=== PATIENT | female | born 1950 | race American Indian/Alaskan Native ===

== ENCOUNTER 2016-07-06 10:36 | Inpatient (IN) | payer MEDICARE ==
[2016-07-06 12:04] LABS: Basophils % (Auto) 0.4 % (0.0-1.8); Eosinophils % (Auto) 0.9 % (0.0-4.3); Hematocrit 41.8 % (30.3-42.9); Hemoglobin 14.4 gm/dl (10.1-14.3); Mean Corpuscular HGB Conc 34 % (30-34); Mean Corpuscular Hemoglobin 31 pg (28-32); Mean Corpuscular Volume 89 fl (79-97); Platelet Count 214 K/mm3 (140-440); Red Blood Count 4.71 M/mm3 (3.65-5.03); Red Cell Distribution Width 14.1 % (13.2-15.2); White Blood Count 7.1 K/mm3 (4.5-11.0)
[2016-07-06 12:20] LABS: Anion Gap 19 mmol/L; BUN/Creatinine Ratio 23.33; Blood Urea Nitrogen 14 mg/dL (7-17); Calcium 9.3 mg/dL (8.4-10.2); Carbon Dioxide 26 mmol/L (22-30); Chloride 93.2 mmol/L (98-107); Glucose 194 mg/dL (65-100); Sodium 134 mmol/L (137-145)
[2016-07-06] MEDS ORDERED: MORPHINE IV ONE (22:00)
[2016-07-06] MEDS ORDERED: ZOFRAN IV ONE (22:00)
[2016-07-06] MEDS ORDERED: BABY ASPIRIN PO ONE (22:01)
--- NOTE | 2016-07-06 22:01 | Emergency Department Report ---
HPI - General Chief Complaint: Chest Pain Time Seen by Provider: 07/06/16 20:08 - HPI HPI: The patient is a 65-year-old female who presents for evaluation of chest pain. The patient reports chest pain since 8 AM this morning, constant since onset, though sided in location, radiating into the neck, 6/10 in severity, and pressure-like in quality. The patient denies fever, neck pain, parasthesias, dyspnea, cough, hemoptysis, palpitations, dizziness, syncope, unilateral leg swelling, calf muscle pain. Patient also denies cocaine or other stimulant use , history of DVT or PE, recent immobilization, or history of recent cancer. ED Past Medical Hx - Past Medical History Hx Hypertension: Yes Hx Heart Attack/AMI: Yes Hx Congestive Heart Failure: Yes Hx Diabetes: Yes Additional medical history: high cholest. hernia - Social History Smoking Status: Never Smoker Substance Use Type: None - Medications Home Medications: Home Medications Medication Instructions Recorded Confirmed Last Taken Type Aspirin EC [Aspirin Enteric Coated 325 mg PO QDAY 07/06/16 07/06/16 Unknown History TAB] Losartan [Cozaar] 100 mg PO QDAY 07/06/16 07/06/16 Unknown History Metoprolol [Lopressor TAB] 25 mg PO QDAY 07/06/16 07/06/16 Unknown History PARoxetine [Paxil] 10 mg PO QAM 07/06/16 07/06/16 Unknown History Triamterene/Hydrochlorothiazid 1 tab PO QDAY 07/06/16 07/06/16 Unknown History [Triamterene-Hctz 50-25 mg Cap] amLODIPine [Norvasc] 10 mg PO QDAY 07/06/16 07/06/16 Unknown History glipiZIDE [glipiZIDE ER] 5 mg PO QDAY 07/06/16 07/06/16 Unknown History ED Review of Systems ROS: Stated complaint: CHEST PNS Other details as noted in HPI Constitutional: denies: fever ENT: denies: throat or neck pain Respiratory: denies: cough, shortness of breath Cardiovascular: reports chest pain Endocrine: denies unexplained weight loss or gain Gastrointestinal: denies: abdominal pain, nausea Genitourinary: denies: dysuria Musculoskeletal: denies: leg swelling Skin: denies: rash Neurological: denies: headache Hematological/Lymphatic: denies: easy bleeding or easy bruising Psych: denies sadness or hopelessness Physical Exam - Physical Exam Vital Signs: Vital Signs 07/06/16 07/06/16 07/06/16 11:24 19:31 21:09 Temperature 98.3 F 98.1 F Pulse Rate 80 71 87 Respiratory 16 20 Rate Blood Pressure 156/102 Blood Pressure 140/84 [Right] O2 Sat by Pulse 99 96 Oximetry Physical Exam: General: well-nourished, well-developed, no acute distress Head: Normocephalic, atraumatic Eyes: normal sclera ENT: Mucous membranes are pink and moist Neck: trachea midline, neck supple, No neck stiffness, no cervical adenopathy Respiratory: Breath sounds equal bilaterally, no wheezing, rales, or rhonchi Cardio: S1 and S2 present, no murmurs, rubs, gallops, capillary refill is brisk Abdomen: Normoactive bowel sounds, soft abdomen, no rigidity, no guarding or rebound tenderness Chest WALL/Back: No tenderness to palpation of the chest wall, no CVA tenderness with percussion Musc: No pitting edema Skin: No rash Neuro: no facial drooping, normal speech Psych: Normal affect ED Course Vital Signs 07/06/16 07/06/16 07/06/16 11:24 19:31 21:09 Temperature 98.3 F 98.1 F Pulse Rate 80 71 87 Respiratory 16 20 Rate Blood Pressure 156/102 Blood Pressure 140/84 [Right] O2 Sat by Pulse 99 96 Oximetry ED Medical Decision Making - Lab Data Result diagrams: 07/06/16 11:40 07/06/16 11:40 - Medical Decision Making The patient was seen and examined by myself. The patient is placed on a lath tier and continuous pulse ox. On initial evaluation, the patient was found to be in no distress. EKG was negative for findings suggestive of acute cardiac infarct. The patient is given an aspirin tablet and IV morphine for her pain.. Labs and imaging are obtained. Chest x-ray is negative for pneumothorax, focal consolidation, pulmonary vascular congestion, pleural effusion, or other obvious acute cardiopulmonary disease process. Lab results were non-revealing including negative troponin, WBC, hemoglobin, hematocrit, electrolytes, renal function. The patient was reevaluated and reported that their symptoms were improved. As the patient has chest pain and risk factors for development of acute coronary event, the patient will be admitted for close cardiopulmonary monitoring, serial troponins, and evaluation by cardiology. The physician on-call was contacted. They presented to the emergency department and evaluated the patient. They agreed to admit the patient. The ED admit order was placed. The patient was admitted in guarded condition. Critical care attestation.: If time is entered above; I have spent that time in minutes in the direct care of this critically ill patient, excluding procedure time. ED Disposition Clinical Impression: Acute chest pain Disposition: OP ADMITTED IP TO THIS HOSP Is pt being admited?: Yes Does the pt Need Aspirin: Yes Condition: Stable Time of Disposition: 22:01
[2016-07-06] MEDS ORDERED: LOVENOX SUB-Q ONE (23:44)
[2016-07-06] MEDS: LOVENOX SUB-Q SCH (23:49)
--- NOTE | 2016-07-07 00:01 | History and Physical Report ---
History of Present Illness Date of examination: 07/06/16 Date of admission: 07/06/16 22:42 Chief complaint: Chest pain History of present illness: Patient is 65-year-old woman with a history of hypertension, type 2 diabetes mellitus, dyslipidemia, CHF, depression, anxiety and tobacco dependency with dipping snuff who presents with constant moderate intense pressure-like nonradiating left-sided chest pain without aggravating or relieving factor to started yesterday associated with left neck pain that started day before without aggravating or relieving factors. She denies any severe headaches, nausea vomiting or abdominal pain. She has chronic left leg neuropathy from diabetes also. She goes to [facility] for PCP. Past medical history: As HPI Past surgical history: 1 and D&C Social history: Chews tobacco, alcohol or illegal drugs, full code Family history: Mother had a heart attack age 59 ROS: as HPI and all other ROS reviewed and negative. Medications and Allergies Allergies Allergy/AdvReac Type Severity Reaction Status Date / Time lisinopril AdvReac Shortness Verified 07/06/16 11:33 of Breath Home Medications Medication Instructions Recorded Confirmed Last Taken Type PARoxetine [Paxil] 10 mg PO QAM 07/06/16 07/06/16 Unknown History RX: Aspirin EC [Aspirin Enteric 325 mg PO QDAY 07/06/16 07/06/16 Unknown History Coated TAB] RX: Losartan [Cozaar] 100 mg PO QDAY 07/06/16 07/06/16 Unknown History RX: Metoprolol [Lopressor TAB] 25 mg PO QDAY 07/06/16 07/06/16 Unknown History RX: Triamterene/Hydrochlorothiazid 1 tab PO QDAY 07/06/16 07/06/16 Unknown History [Triamterene-Hctz 50-25 mg Cap] RX: amLODIPine [Norvasc] 10 mg PO QDAY 07/06/16 07/06/16 Unknown History glipiZIDE [glipiZIDE ER] 5 mg PO QDAY 07/06/16 07/06/16 Unknown History Active Meds: Active Medications Enoxaparin Sodium (Lovenox) 40 mg SUB-Q QDAY@2200 JOHN Last Admin: 07/06/16 23:49 Dose: 40 mg Exam - Physical Exam Narrative exam: GEN: WDWN, NAD, AWAKE, ALERT, ORIENTATED x 3 HEENT: NCAT, PERRL, EOMI, OP CLEAR NECK: SUPPLE, NO THYROMEGALY, NO JVD, NO LAD CVS: RRR, NORMAL S1S2 LUNGS/CHEST: CTA B, NORMAL CHEST EXPANSION B, GOOD AIR ENTRY B ABD: SOFT NTND, GBS, NO REBOUND OR GUARDING EXT/SKIN: NO SIGNIFICANT EDEMA, multiple healed scars throughout upper back, arms, legs MSK: FROM X 4 EXTREMITIES NEURO: CN 2-12 GROSSLY INTACT, NO new FOCAL DEFICITS PSY: CALM - Constitutional Vitals: Temp Pulse Resp BP Pulse Ox 98.1 F 84 15 144/85 93 07/06/16 23:50 07/06/16 23:50 07/06/16 23:50 07/06/16 23:50 07/06/16 23:50 Results - Labs CBC & Chem 7: 07/06/16 11:40 07/06/16 11:40 Assessment and Plan Patient is 65-year-old woman with a history of hypertension, type 2 diabetes mellitus, dyslipidemia, CHF, depression, anxiety and tobacco dependency with dipping snuff who presents with constant moderate intense pressure-like nonradiating left-sided chest pain without aggravating or relieving factor to started yesterday associated with left neck pain that started day before without aggravating or relieving factors. She denies any severe headaches, nausea vomiting or abdominal pain. She has chronic left leg neuropathy from diabetes also. She goes to [facility] for PCP. -CP, r/o: stress test -DM 2 uncontrolled with hyperglycemia: ssi -Tobacco dependancy: certified addiction counselor on stopping -HTN: low salt diet -DVT prophylaxis: scd and sq lovenox -Morbid obese, bmi 45.3: eating [employer] cheeseburger, counseling done. full code
[2016-07-07] MEDS ORDERED: D50W (25GM) IV PRN (00:10)
[2016-07-07] MEDS: NOVOLOG SUB-Q SCH ×3 (07:02→17:33)
--- NOTE | 2016-07-07 07:16 | Admit Criteria Form ---
Admission Criteria Documentation: CHEST PAIN Clinical Indications for Admission to Inpatient Care (Place 'X' for any and all applicable criteria): Admission is indicated for chest pain and ANY ONE of the following(1)(2)(3)(4)(5 ): [ ]I. Angina with acute coronary syndrome (Also use Myocardial Infarction or Angina guideline) [ ]II. Hemodynamic instability [ ]III. Angina needing acute intervention as indicated by ALL of the following( 11)(12): [ ]a) Unstable angina is present as indicated by angina that is ANY ONE of the following: [ ]i) New onset [ ]ii) Nocturnal [ ]iii) Prolonged at rest [ ]iv) Progressive [ ]b) Angina warrants acute intervention as indicated by ANY ONE of the following: [ ]i) Recurrent angina (e.g, not responding as previously to treatment) [ ]ii) Angina at rest or with low-level activities despite initial medical therapy [ ]iii) New or presumably new ST-segment depression on ECG [ ]iv) Signs or symptoms of heart failure (eg, dyspnea, pulmonary edema) [ ]v) New or worsening mitral regurgitation [ ]vi) Hemodynamic instability [ ]vii) Dangerous arrhythmia (eg, sustained ventricular tachycardia) [ ]viii) History of percutaneous coronary intervention within 6 months [ ]ix) History of coronary artery bypass graft surgery [ ]x) DAIJA risk score of 2 or greater[A] [ ]xi) History of Diabetes(14) [ ]xii) High-risk cardiac ischemia findings on noninvasive testing (e.g, echocardiogram, treadmill testing, nuclear scan) [ ]xiii) Chronic renal insufficiency (ie, estimated GFR less than 60 mL/min/1.732m) [ ]xiv) Left ventricular ejection fraction less than 40% [ ]IV. Evidence of SD (eg, cardiac biomarkers positive, ST-segment elevation on ECG) also use Myocardial Infarction Criteria Form. [ ]V. Pulmonary edema [ ]. Respiratory distress [ ]VII. Chest pain indicative of serious diagnosis other than coronary artery disease (eg, aortic dissection) [ ]VIII. Contraindications and/or Inappropriate clinical situations for Observational Care in patients with Chest Pain, when ANY ONE of the following is required: [ ]a) Patient with risk factor for pulmonary embolism, acute coronary syndrome and myocardial infarction (18) [ ]b) Patient with Pulmonary embolism require an average LOS of 4.3 days, therefore emergency department observation management is inappropriate 18,23 [ ]c) Painful condition/s in the elderly, have the highest rate of recidivism after emergency department observation management (10.8%) 20,21,22 [ ]d) Elevated cardiac biomarker requires intensive and exhaustive care (19) [X ]IX. General contraindications and/or Inappropriate clinical situations for Observational Care in patients with Chest Pain, when ANY ONE of the following is required: [X ]a) Prediction of prolongation of LOS based on ANY ONE of the following may be considered as a contraindication for observational care 2, 3, 4, 5, 6, 7, 8, 9, 10, 11 [X ]i) Age > 65 yrs. [ ]ii) Patient arriving by ambulance [ ]iii) Patient with high acuity [ ]iv) Patient requiring vital sign monitoring [ ]v) Patient on IV medication [ ]b) Systolic blood pressures 180mmHg 3,12 [ ]c) Patient with altered mental status including delirium and other alteration of consciousness, (3) [ ]d) Patient whose discharge disposition will be to a shelter home or rehabilitation home should not be managed in Emergency Department Observation Unit. CMS rule requires 3 days hospital stay before such placement. 3,13 [ ]e) Patient with failure to thrive due to broad array of etiologies 3,16,17 [ ]f) Inability to ambulate 3,14 Extended stay beyond goal length of stay may be needed for (1)(28): [ ]a) Specific condition diagnosed after evaluation (eg, pulmonary embolism, aortic dissection) [ ]b) Unstable angina [ ]c) Continued suspicion of acute coronary syndrome with inability to complete needed cardiac evaluation (eg, patient clinically unable to undergo stress testing) [ ]d) Myocardial infarction (Contents from ANGINA and CHEST PAIN clinical indications for admission to inpatient care have been integrated in this form) The original [facility] content created by [employer] has been revised. The portions of the content which have been revised are identified through the use of italic text or in bold, and [facility] [employer] has neither reviewed nor approved the modified material. All other unmodified content is copyright [facility]. Please see references footnoted in the original [facility] [employer] edition 2016 Admission Criteria Met: Yes
--- NOTE | 2016-07-07 07:30 | XRay Report ---
AP CHEST: HISTORY: chest pain AP view of the chest demonstrates a normal mediastinal and cardiac contour with clear lungs and normal bony and soft tissue structures. IMPRESSION: Unremarkable AP chest.
[2016-07-07] MEDS: ECOTRIN PO SCH (12:01)
[2016-07-07] MEDS: PAXIL PO SCH (12:02)
[2016-07-07] MEDS: LOPRESSOR PO SCH (12:02)
--- NOTE | 2016-07-07 15:37 | Event Note ---
Date: 07/07/16 Nuclear stress test was cancelled per Dr. Rosales. The patient had a previous at [facility] on 05/08/2016. The report of that exam was placed in the chart for review. Recommend pt to follow up in our office with Dr. Johnson within 1-2 weeks of hospital discharge ([phone]). Deanne MODI NP / DR. JOHNSON
--- NOTE | 2016-07-07 19:28 | Progress Note ---
Assessment and Plan -Atypical chest pain likely secondary to assess for reflux disease Continue with oxygen nitroglycerin aspirin and morphine. Stress test was consult today because patient had had a stress test at [facility] on 05/08/2016. -Diabetes mellitus type 2 Sliding scale insulin with consistent carbohydrates diet -Hypertension Optimize blood pressure control -Morbid obesity Dietary for weight management DVT prophylaxis with Lovenox and GI with Pepcid Disposition: Optimize glycemic control with possible discharge in the morning Subjective Date of service: 07/07/16 Principal diagnosis: chest pain, diabetes mellitus. Interval history: Chest pain resolving. Objective - Constitutional Vitals: Vital Signs - 12hr 07/07/16 07/07/16 07/07/16 09:00 10:00 12:02 Temperature 98.7 F Pulse Rate 68 76 Pulse Rate [ 66 65 Right Radial] Respiratory 18 Rate Blood Pressure 124/63 Blood Pressure 110/72 [Left Arm] O2 Sat by Pulse 96 Oximetry 07/07/16 07/07/16 15:21 17:00 Temperature 97.7 F Pulse Rate 78 Pulse Rate [ 67 Right Radial] Respiratory 18 Rate Blood Pressure Blood Pressure 114/74 [Left Arm] O2 Sat by Pulse 97 Oximetry General appearance: Present: no acute distress, obese - EENT Eyes: PERRL, EOM intact ENT: hearing intact, clear oral mucosa - Neck Neck: supple, normal ROM - Respiratory Respiratory effort: normal Respiratory: bilateral: CTA - Cardiovascular Rhythm: regular Heart Sounds: Present: S1 & S2. Absent: gallop, rub Extremities: pulses intact, No edema, normal color, Full ROM - Gastrointestinal General gastrointestinal: Present: soft, non-tender, non-distended, normal bowel sounds - Genitourinary Female genitourinary: normal - Integumentary Integumentary: clear, warm, dry - Musculoskeletal Musculoskeletal: 1, strength equal bilaterally - Neurologic Neurologic: moves all extremities - Psychiatric Psychiatric: memory intact, appropriate mood/affect, intact judgment & insight - Labs CBC & Chem 7: 07/06/16 11:40 07/06/16 11:40 Labs: Abnormal lab results 07/07/16 07/07/16 07/07/16 Range/Units 06:44 11:58 15:21 POC Glucose 128 H 146 H 166 H (70-105)
[2016-07-07] MEDS: LOVENOX SUB-Q SCH (21:21)
[2016-07-08] MEDS: NOVOLOG SUB-Q SCH ×2 (06:18)
[2016-07-08] MEDS: LOPRESSOR PO SCH (10:02)
[2016-07-08] MEDS: ECOTRIN PO SCH (10:03)
[2016-07-08] MEDS: PAXIL PO SCH (10:03)
[2016-07-08 10:04] VITALS: BP 106/65
--- NOTE | 2016-07-08 10:52 | Discharge Summary ---
Providers - Providers Date of Admission: 07/06/16 22:42 Date of discharge: 07/08/16 Attending physician: REBECCA JUÁREZ Hospitalization Condition: Stable Hospital course: Patient is 65-year-old woman with a history of hypertension, type 2 diabetes mellitus, dyslipidemia, CHF, depression, anxiety and tobacco dependency with dipping snuff who presents with constant moderate intense pressure-like nonradiating left-sided chest pain without aggravating or relieving factor to started yesterday associated with left neck pain that started day before without aggravating or relieving factors. She denies any severe headaches, nausea vomiting or abdominal pain. She has chronic left leg neuropathy from diabetes also. She goes to [facility] for PCP. -CP, atypical, resolved most likely GERD related -DM 2 uncontrolled with hyperglycemia: ssi -Tobacco dependancy: drug abuse counselor on stopping -HTN: low salt diet -DVT prophylaxis: scd and sq lovenox -Morbid obese, bmi 45.3: eating [employer] cheeseburger, counseling done. full code Date: 07/07/16 Nuclear stress test was cancelled per Dr. Rosales. The patient had a previous at [facility] on 05/08/2016. The report of that exam was placed in the chart for review. Recommend pt to follow up in our office with Dr. Sanchez within 1-2 weeks of hospital discharge ([phone]). Deanne MODI NP / DR. SANCHEZ Disposition: DISCHARGED TO HOME OR SELFCARE Time spent for discharge: 34 minutes Core Measure Documentation - Palliative Care Palliative Care/ Comfort Measures: Not Applicable - Core Measures Any of the following diagnoses?: none - VTE Discharge Requirements Deep Vein Thrombosis/Pulmonary Embolism Present on Admission: No Has pt received <5 days of overlap therapy or INR<2.0: No Anticoagulant overlap therapy prescribed at discharge: No Contraindication No Overlap Therapy order at DC: Not Indicated Exam - Physical Exam Narrative exam: GEN: WDWN, NAD, AWAKE, ALERT, ORIENTATED x 3 HEENT: NCAT, PERRL, EOMI, OP CLEAR NECK: SUPPLE, NO THYROMEGALY, NO JVD, NO LAD CVS: RRR, NORMAL S1S2 LUNGS/CHEST: CTA B, NORMAL CHEST EXPANSION B, GOOD AIR ENTRY B ABD: SOFT NTND, GBS, NO REBOUND OR GUARDING EXT/SKIN: NO SIGNIFICANT EDEMA, multiple healed scars throughout upper back, arms, legs MSK: FROM X 4 EXTREMITIES NEURO: CN 2-12 GROSSLY INTACT, NO new FOCAL DEFICITS PSY: CALM - Constitutional Vitals: Temp Pulse Resp BP Pulse Ox 97.8 F 97 H 18 106/65 97 07/08/16 09:07 07/08/16 10:02 07/08/16 09:07 07/08/16 10:02 07/08/16 09:07 Plan Activity: other (no strenous activites until cleared by PCP. ) Diet: low salt, diabetic Special Instructions: record daily BP diary, record blood sugar diary Follow up with: PRIMARY CARE, [Referring] - 3-5 Days
== END 2016-07-08 11:57 | disposition home health service (06) | DRG 392 ==
LOC: ED 10:36 → 4A 22:42
PROVIDERS: ADMIT Internal Medicine; ATTEND Internal Medicine
DX: K21.9 Gastro-esophageal reflux disease without esophagitis (principal); Z68.41 Body mass index [BMI] 40.0-44.9, adult; E11.65 Type 2 diabetes mellitus with hyperglycemia; E66.01 Morbid (severe) obesity due to excess calories; E78.5 Hyperlipidemia, unspecified; I50.9 Heart failure, unspecified; I11.0 Hypertensive heart disease with heart failure; F32.9 Major depressive disorder, single episode, unspecified; F41.9 Anxiety disorder, unspecified; F17.200 Nicotine dependence, unspecified, uncomplicated; E11.40 Type 2 diabetes mellitus with diabetic neuropathy, unspecified; F17.220 Nicotine dependence, chewing tobacco, uncomplicated; G57.82 Other specified mononeuropathies of left lower limb; Z71.3 Dietary counseling and surveillance; I25.2 Old myocardial infarction; Z82.49 Family history of ischemic heart disease and other diseases of the circulatory system; Z71.6 Tobacco abuse counseling
CPT/HCPCS: 36415; 71010; 80048; 80061; 82962; 84484; 85025; 93005; 93010; 96374; 96375; J1650; J2270; J2405

== ENCOUNTER 2018-07-03 12:02 | Observation (INO) | payer MEDICARE ==
--- NOTE | 2018-07-03 12:48 | Emergency Department Report ---
Chief Complaint: Dyspnea/Respdistress Stated Complaint: DIZZY/BODY ACHE/SOB Time Seen by Provider: 07/03/18 12:44 - HPI History of Present Illness: This is a 67 y.o. F that presents to the ER with SOB and left sided neck pain. Patient reports SOB and dizziness started this morning and left sided neck pain and upper back pain x 1 week. PMH DM2, CHF, & HTN - Exam Vital Signs: Vital Signs 07/03/18 12:44 Temperature 98.7 F Pulse Rate 89 Respiratory 18 Rate Blood Pressure 130/79 [Right] O2 Sat by Pulse 99 Oximetry MSE screening note: Focused history and physical exam performed. Due to findings the following was ordered: labs and cxr ED Disposition for MSE Condition: Stable
[2018-07-03 13:27] LABS: Hematocrit 40.6 % (30.3-42.9); Hemoglobin 14.2 gm/dl (10.1-14.3); Mean Corpuscular HGB Conc 35 % (30-34); Mean Corpuscular Volume 91 fl (79-97); Platelet Count 246 K/mm3 (140-440); Red Blood Count 4.46 M/mm3 (3.65-5.03); Red Cell Distribution Width 14.1 % (13.2-15.2)
[2018-07-03 13:47] LABS: BUN/Creatinine Ratio 13; Blood Urea Nitrogen 13 mg/dL (7-17); Calcium 9.6 mg/dL (8.4-10.2); Hemolysis Index 7
--- NOTE | 2018-07-03 14:00 | XRay Report ---
ROUTINE CHEST, TWO VIEWS: HISTORY: Short of breath and discomfort. The trachea, heart, mediastinal contour, lung matamoros and bony thorax are unremarkable. IMPRESSION: Unremarkable chest x-ray.
[2018-07-03 14:45] LABS: INR 1.01 (0.87-1.13); Partial Thromboplastin Time 29.9 Sec. (24.2-36.6)
--- NOTE | 2018-07-03 15:21 | Emergency Department Report ---
ED Chest Pain HPI - General Chief Complaint: Dyspnea/Respdistress Stated Complaint: DIZZY/BODY ACHE/SOB Time Seen by Provider: 07/03/18 12:44 Source: patient Mode of arrival: Wheelchair Limitations: No Limitations - History of Present Illness Initial Comments: Patient is a 67-year-old female who has a history of hypertension and diabetes possible congestive heart failure and [place] who is presenting with chest discomfort. Patient states she has a burning pressure- like sensation in the chest that has been intermittent for the last week. Patient states there is some radiation to her back as well as now her jaw and shoulders bilaterally. Patient states she started having shortness of breath this morning. Patient states the discomfort is worse with exertion but is present at rest as well. Patient denies any cough nausea vomiting fevers chills or pleuritic component at this time. Patient states her last stress test was approximately 8 years ago. She was told she had a [place] A Prakash but states she doesn't remember having any stents or having surgery. Severity scale (0 -10): 8 - Related Data Home Medications Medication Instructions Recorded Confirmed Last Taken Aspirin EC 325 mg PO QDAY 07/06/16 05/03/17 07/06/16 09:00 Losartan [Cozaar] 100 mg PO QDAY 07/06/16 05/03/17 07/06/16 Metoprolol [Lopressor TAB] 25 mg PO QDAY 07/06/16 05/03/17 07/06/16 PARoxetine [Paxil] 10 mg PO QAM 07/06/16 05/03/17 07/06/16 Triamterene/Hydrochlorothiazid 1 tab PO QDAY 07/06/16 05/03/17 07/06/16 [Triamterene-Hctz 50-25 mg Cap] amLODIPine [Norvasc] 10 mg PO QDAY 07/06/16 05/03/17 07/06/16 glipiZIDE [glipiZIDE ER] 5 mg PO QDAY 07/06/16 05/03/17 07/06/16 Allergies Allergy/AdvReac Type Severity Reaction Status Date / Time lisinopril AdvReac Shortness Verified 07/03/18 12:45 of Breath Heart Score - HEART Score History: Moderately suspicious EKG: Normal Age: > 65 Risk factors: > 3 risk factors or hx of atherosclerotic disease Troponin: < normal limit HEART Score: 5 ED Review of Systems ROS: Stated complaint: DIZZY/BODY ACHE/SOB Other details as noted in HPI Comment: All other systems reviewed and negative ED Past Medical Hx - Past Medical History Hx Hypertension: Yes Hx Heart Attack/AMI: Yes Hx Congestive Heart Failure: Yes Hx Diabetes: Yes Additional medical history: high cholest. hernia - Surgical History Hx Appendectomy: No Additional Surgical History: - Social History Smoking Status: Never Smoker Substance Use Type: None - Medications Home Medications: Home Medications Medication Instructions Recorded Confirmed Last Taken Type Aspirin EC 325 mg PO QDAY 07/06/16 05/03/17 07/06/16 09:00 History Losartan [Cozaar] 100 mg PO QDAY 07/06/16 05/03/17 07/06/16 History Metoprolol [Lopressor TAB] 25 mg PO QDAY 07/06/16 05/03/17 07/06/16 History PARoxetine [Paxil] 10 mg PO QAM 07/06/16 05/03/17 07/06/16 History Triamterene/Hydrochlorothiazid 1 tab PO QDAY 07/06/16 05/03/17 07/06/16 History [Triamterene-Hctz 50-25 mg Cap] amLODIPine [Norvasc] 10 mg PO QDAY 07/06/16 05/03/17 07/06/16 History glipiZIDE [glipiZIDE ER] 5 mg PO QDAY 07/06/16 05/03/17 07/06/16 History ED Physical Exam - General Limitations: No Limitations General appearance: alert, in no apparent distress - Head Head exam: Present: atraumatic, normocephalic - Eye Eye exam: Present: normal appearance, PERRL, EOMI Pupils: Present: normal accommodation - ENT ENT exam: Present: mucous membranes moist - Neck Neck exam: Present: normal inspection - Respiratory Respiratory exam: Present: normal lung sounds bilaterally. Absent: respiratory distress, wheezes, rales, rhonchi - Cardiovascular Cardiovascular Exam: Present: regular rate, normal rhythm. Absent: systolic murmur, diastolic murmur, rubs, gallop - GI/Abdominal GI/Abdominal exam: Present: soft, normal bowel sounds. Absent: distended, tenderness, guarding, rebound - Extremities Exam Extremities exam: Present: normal inspection - Back Exam Back exam: Present: normal inspection - Neurological Exam Neurological exam: Present: alert, oriented X3 - Psychiatric Psychiatric exam: Present: normal affect, normal mood - Skin Skin exam: Present: warm, dry, intact, normal color. Absent: rash ED Course Vital Signs 07/03/18 12:44 Temperature 98.7 F Pulse Rate 89 Respiratory 18 Rate Blood Pressure 130/79 [Right] O2 Sat by Pulse 99 Oximetry ANTONIO score - Antonio Score Age > 65: (1) Yes Aspirin use within the Past 7 Days: (0) No 3 or more CAD Risk Factors: (1) Yes 2 or more Angina events in past 24 hrs: (1) Yes Known CAD with more than 50% Stenosis: (0) No Elevated Cardiac Markers: (0) No ST Deviation Greater than 0.5mm: (0) No ANTONIO Score: 3 ED Medical Decision Making - Lab Data Result diagrams: 07/03/18 13:00 07/03/18 13:00 Lab Results 07/03/18 07/03/18 07/03/18 Range/Units 13:00 13:00 14:13 WBC 3.7 L (4.5-11.0) K/mm3 RBC 4.46 (3.65-5.03) M/mm3 Hgb 14.2 (10.1-14.3) gm/dl Hct 40.6 (30.3-42.9) % MCV 91 (79-97) fl MCH 32 (28-32) pg MCHC 35 H (30-34) % RDW 14.1 (13.2-15.2) % Plt Count 246 (140-440) K/mm3 PT 13.9 (12.2-14.9) Sec. INR 1.01 (0.87-1.13) APTT 29.9 (24.2-36.6) Sec. D-Dimer 188.34 (0-234) ng/mlDDU Sodium 136 L (137-145) mmol/L Potassium 3.8 (3.6-5.0) mmol/L Chloride 95.6 L (98-107) mmol/L Carbon Dioxide 28 (22-30) mmol/L Anion Gap 16 mmol/L BUN 13 (7-17) mg/dL Creatinine 1.0 (0.7-1.2) mg/dL Estimated GFR > 60 ml/min BUN/Creatinine Ratio 13 % Glucose 126 H (65-100) mg/dL Calcium 9.6 (8.4-10.2) mg/dL Troponin T (0.00-0.029) ng/mL 07/03/18 Range/Units 14:13 WBC (4.5-11.0) K/mm3 RBC (3.65-5.03) M/mm3 Hgb (10.1-14.3) gm/dl Hct (30.3-42.9) % MCV (79-97) fl MCH (28-32) pg MCHC (30-34) % RDW (13.2-15.2) % Plt Count (140-440) K/mm3 PT (12.2-14.9) Sec. INR (0.87-1.13) APTT (24.2-36.6) Sec. D-Dimer (0-234) ng/mlDDU Sodium (137-145) mmol/L Potassium (3.6-5.0) mmol/L Chloride (98-107) mmol/L Carbon Dioxide (22-30) mmol/L Anion Gap mmol/L BUN (7-17) mg/dL Creatinine (0.7-1.2) mg/dL Estimated GFR ml/min BUN/Creatinine Ratio % Glucose (65-100) mg/dL Calcium (8.4-10.2) mg/dL Troponin T < 0.010 (0.00-0.029) ng/mL - EKG Data -: EKG Interpreted by Tx EKG shows normal: sinus rhythm, axis, intervals, QRS complexes, ST-T waves Rate: normal - EKG Data Interpretation: normal EKG - Radiology Data [facility] [address] [place] [address] XRay Report Signed Patient: AMANDA ALCARAZ MR#: [id number] : 1950 Acct:[id number] Age/Sex: 67 / F ADM Date: 07/03/18 Loc: ED Attending Dr: Ordering Physician: JORGE WHIPPLE Date of Service: 07/03/18 Procedure(s): XR chest routine 2V Accession Number(s): [id number] cc: JORGE WHIPPLE Fluoro Time In Minutes: ROUTINE CHEST, TWO VIEWS: HISTORY: Short of breath and discomfort. The trachea, heart, mediastinal contour, lung matamoros and bony thorax are unremarkable. IMPRESSION: Unremarkable chest x-ray. Transcribed By: TTR Dictated By: YUE MINOR JR, MD Electronically Authenticated By: YUE MINOR JR, MD Signed Date/Time: 07/03/181354 DD/ 54 TD/TT: 07/03/181354 - Medical Decision Making Patient is a 67-year-old Krista female who does have significant risk factors for heart disease who is presenting with some chest discomfort. Patient has a heart score 5 the patient be admitted to the hospitalist group at this time. Critical Care Time: Yes Critical care attestation.: If time is entered above; I have spent that time in minutes in the direct care of this critically ill patient, excluding procedure time. ED Disposition Clinical Impression: Acute chest pain Disposition: 09 OP ADMIT IP TO THIS HOSP Is pt being admited?: Yes Does the pt Need Aspirin: No Condition: Stable Instructions: Chest Pain (ED) Referrals: ALVARO JAIN MD [Primary Care Provider] - 3-5 Days Time of Disposition: 15:21
--- NOTE | 2018-07-03 16:03 | History and Physical Report ---
History of Present Illness Date of examination: 07/03/18 Date of admission: 07/03/18 15:22 Chief complaint: Left-sided chest pain for 1 day. History of present illness: CC-year-old -Citizen Of [place] female comes in for left-sided chest pain with radiation to the neck on the left side. And the back. And some shortness of breath. No diaphoresis or palpitations. No vomiting. Patient also has left arm numbness which she attributes to the neck pain. States pain about 5 on a scale of 1-10. Dull in character and intermittent. No recent travel. Patient has a history of hypertension diabetes and depression. Patient had stress test 1-1/2 years ago. No exacerbating or relieving factors Past Medical History Hypertension: Yes Heart Attack/AMI: Yes Congestive Heart Failure: Yes Diabetes: Yes Additional medical history: high cholest. hernia Surgical History Social History Smoking Status: Never Smoker Substance Use Type: None Family History Htn Medications Home Medications: Home Medications Medication Instructions Recorded Confirmed Last Taken Type Aspirin EC 325 mg PO QDAY 07/06/16 05/03/17 07/06/16 09:00 History Losartan [Cozaar] 100 mg PO QDAY 07/06/16 05/03/17 07/06/16 History Metoprolol [Lopressor TAB] 25 mg PO QDAY 07/06/16 05/03/17 07/06/16 History PARoxetine [Paxil] 10 mg PO QAM 07/06/16 05/03/17 07/06/16 History Triamterene/Hydrochlorothiazid 1 tab PO QDAY 07/06/16 05/03/17 07/06/16 History [Triamterene-Hctz 50-25 mg Cap] amLODIPine [Norvasc] 10 mg PO QDAY 07/06/16 05/03/17 07/06/16 History glipiZIDE [glipiZIDE ER] 5 mg PO QDAY 07/06/16 05/03/17 07/06/16 History Review of Systems ROS: Stated complaint: DIZZY/BODY ACHE/SOB Other details as noted in HPI Comment: All other systems reviewed and negative Medications and Allergies Allergies Allergy/AdvReac Type Severity Reaction Status Date / Time lisinopril AdvReac Shortness Verified 07/03/18 12:45 of Breath Home Medications Medication Instructions Recorded Confirmed Last Taken Type Aspirin EC 325 mg PO QDAY 07/06/16 05/03/17 07/06/16 09:00 History Losartan [Cozaar] 100 mg PO QDAY 07/06/16 05/03/17 07/06/16 History Metoprolol [Lopressor TAB] 25 mg PO QDAY 07/06/16 05/03/17 07/06/16 History PARoxetine [Paxil] 10 mg PO QAM 07/06/16 05/03/17 07/06/16 History Triamterene/Hydrochlorothiazid 1 tab PO QDAY 07/06/16 05/03/17 07/06/16 History [Triamterene-Hctz 50-25 mg Cap] amLODIPine [Norvasc] 10 mg PO QDAY 07/06/16 05/03/17 07/06/16 History glipiZIDE [glipiZIDE ER] 5 mg PO QDAY 07/06/16 05/03/17 07/06/16 History Exam - Constitutional Vitals: Temp Pulse Resp BP Pulse Ox 98.7 F 89 18 130/79 99 07/03/18 12:44 07/03/18 12:44 07/03/18 12:44 07/03/18 12:44 07/03/18 12:44 General appearance: Present: no acute distress, well-nourished - EENT Eyes: Present: PERRL ENT: hearing intact, clear oral mucosa - Neck Neck: Present: supple, normal ROM - Respiratory Respiratory effort: normal Respiratory: bilateral: CTA - Cardiovascular Rhythm: regular Heart Sounds: Present: S1 & S2. Absent: rub, click - Extremities Extremities: no ischemia, pulses intact, pulses symmetrical, No edema Peripheral Pulses: within normal limits - Abdominal General gastrointestinal: Present: soft, non-tender, non-distended, normal bowel sounds Female genitourinary: Present: normal - Rectal Rectal Exam: deferred - Integumentary Integumentary: Present: clear, warm, dry - Musculoskeletal Musculoskeletal: gait normal, strength equal bilaterally - Psychiatric Psychiatric: appropriate mood/affect, intact judgment & insight - Neurologic Neurologic: CNII-XII intact, moves all extremities Results - Labs CBC & Chem 7: 07/03/18 13:00 07/03/18 13:00 Labs: Laboratory Last Values WBC 3.7 K/mm3 (4.5-11.0) L 07/03/18 13:00 RBC 4.46 M/mm3 (3.65-5.03) 07/03/18 13:00 Hgb 14.2 gm/dl (10.1-14.3) 07/03/18 13:00 Hct 40.6 % (30.3-42.9) 07/03/18 13:00 MCV 91 fl (79-97) 07/03/18 13:00 MCH 32 pg (28-32) 07/03/18 13:00 MCHC 35 % (30-34) H 07/03/18 13:00 RDW 14.1 % (13.2-15.2) 07/03/18 13:00 Plt Count 246 K/mm3 (140-440) 07/03/18 13:00 PT 13.9 Sec. (12.2-14.9) 07/03/18 14:13 INR 1.01 (0.87-1.13) 07/03/18 14:13 APTT 29.9 Sec. (24.2-36.6) 07/03/18 14:13 188.34 ng/mlDDU (0-234) 07/03/18 14:13 Sodium 136 mmol/L (137-145) L 07/03/18 13:00 Potassium 3.8 mmol/L (3.6-5.0) 07/03/18 13:00 Chloride 95.6 mmol/L (98-107) L 07/03/18 13:00 Carbon Dioxide 28 mmol/L (22-30) 07/03/18 13:00 16 mmol/L 07/03/18 13:00 BUN 13 mg/dL (7-17) 07/03/18 13:00 1.0 mg/dL (0.7-1.2) 07/03/18 13:00 Estimated GFR > 60 ml/min 07/03/18 13:00 13 % 07/03/18 13:00 Glucose 126 mg/dL (65-100) H 07/03/18 13:00 Calcium 9.6 mg/dL (8.4-10.2) 07/03/18 13:00 < 0.010 ng/mL (0.00-0.029) 07/03/18 14:13 - Imaging and Cardiology EKG: report reviewed Chest x-ray: report reviewed (no acute findings) Imaging and Cardiology: EKG Normal sinus rhythm heart rate of 78/m no acute ST-T wave changes Assessment and Plan Advance Directives: Yes (full code) VTE prophylaxis?: Chemical Plan of care discussed with patient/family: Yes - Patient Problems (1) Acute chest pain Current Visit: Yes Status: Acute Plan to address problem: Serial troponins and Lexiscan in the morning Patient has some left wall tenderness Possible costochondritis GERD is a possibility (2) HTN (hypertension) Current Visit: No Status: Chronic Qualifiers: Hypertension type: essential hypertension Qualified Code(s): I10 - Essential (primary) hypertension Plan to address problem: Continue antihypertensives (3) T2DM (type 2 diabetes mellitus) Current Visit: No Status: Chronic Qualifiers: Diabetes mellitus chcf insulin use: without watermelon inspector use Plan to address problem: Continue glipizide and coverage with insulin Check hemoglobin A1c (4) Depression Current Visit: Yes Status: Chronic Qualifiers: Depression Type: unspecified Qualified Code(s): F32.9 - Major depressive disorder, single episode, unspecified Plan to address problem: Continue Paxil 10 mg in the morning (5) Neck pain, acute Current Visit: Yes Status: Acute Plan to address problem: We will get CT of the C-spine Patient may have degenerative disc disease versus disc prolapse (6) Hyponatremia Current Visit: Yes Status: Acute Plan to address problem: Mild IV fluids for now (7) DVT prophylaxis Current Visit: No Status: Acute Plan to address problem: On Lovenox and GI prophylaxis
[2018-07-03] MEDS ORDERED: SODIUM CHLORIDE FLUSH SYRINGE 10 ML IV PRN (16:15)
[2018-07-03] MEDS ORDERED: ZOFRAN IV PRN (16:15)
[2018-07-03] MEDS ORDERED: TYLENOL PO PRN (16:15)
[2018-07-03] MEDS ORDERED: NON-FORMULARY (Losartan [Cozaar] 100 MG) PO SCH (16:30)
[2018-07-03] MEDS ORDERED: HYDROCHLOROTHIAZID PO SCH (16:30)
[2018-07-03] MEDS ORDERED: TRIAMTERENE PO SCH (16:30)
[2018-07-03] MEDS ORDERED: NACL 0.9% 1000 ML 1,000 ML IV SCH ×2 (17:00)
[2018-07-03] MEDS: HumaLOG SUB-Q SCH ×2 (18:01→21:43)
--- NOTE | 2018-07-03 18:39 | Cat Scan Report ---
PROCEDURE: CT CERVICAL SPINE WO CON TECHNIQUE: Computerized tomography of the cervical spine was performed from the skull base to T1 wit hout contrast material. CT DOSE LENGTH PRODUCT: 937.9 mGycm HISTORY: neck pain and left arm radiculopathy COMPARISONS: None . FINDINGS: The vertebral body heights and alignment are maintained. There are osteoarthritic changes of the atlantodental articulation. There is limited evaluation of disc material with this modality. There are anterior osteophytes and m ild disc space narrowing from C3-4 through C6-7. No bony spinal stenosis or neural foraminal narrowin g is seen however. No fracture or subluxation is seen. IMPRESSION: Minimal degenerative disc changes from C3-4 through C6-7. No osseous spinal stenosis or neural forami nal narrowing is seen. There is limited evaluation of disc material with this modality. This document is electronically signed by Maira Cifuentes MD., Jul 03 2018 06:37:30 PM ET
[2018-07-03] MEDS: NORVASC PO SCH (18:45)
[2018-07-03] MEDS: LOPRESSOR PO SCH (18:46)
[2018-07-03] MEDS: COZAAR PO SCH ×2 (18:47→19:01)
[2018-07-03] MEDS: GLUCOTROL XL PO SCH (19:01)
[2018-07-03] MEDS: SODIUM CHLORIDE FLUSH SYRINGE 10 ML IV SCH (21:46)
[2018-07-03] MEDS ORDERED: LOVENOX SUB-Q SCH (22:00)
[2018-07-04] MEDS: HumaLOG SUB-Q SCH ×3 (08:05→16:46)
[2018-07-04] MEDS ORDERED: LEXISCAN IV ONE ×2 (09:28→10:00)
[2018-07-04] MEDS ORDERED: PAXIL PO SCH (10:00)
[2018-07-04] MEDS ORDERED: MAXZIDE-25 PO SCH (10:00)
[2018-07-04] MEDS ORDERED: ECOTRIN PO SCH (10:00)
[2018-07-04] MEDS: LOPRESSOR PO SCH (12:03)
[2018-07-04] MEDS: GLUCOTROL XL PO SCH (12:04)
[2018-07-04] MEDS: NORVASC PO SCH (12:05)
[2018-07-04] MEDS: COZAAR PO SCH (12:05)
[2018-07-04] MEDS: SODIUM CHLORIDE FLUSH SYRINGE 10 ML IV SCH (12:06)
--- NOTE | 2018-07-04 15:04 | XRay Report ---
AP AND LATERAL LUMBOSACRAL SPINE: History: Pain. Borderline osteopenia. No compression deformities, subluxation or bone lesion. Mild disc space narrowing is noted at L3-4 and L5-S1. Mild diffuse facet arthropathy. Sacrum and SI joints are unremarkable. IMPRESSION: Borderline osteopenia. Lumbar spondylosis as described. No acute process.
[2018-07-04 15:08] VITALS: BP 108/74
--- NOTE | 2018-07-04 15:22 | Discharge Summary ---
Providers - Providers Date of Admission: 07/03/18 15:22 Date of discharge: 07/04/18 Attending physician: ISAI CEVALLOS Primary care physician: ALVARO JAIN Hospitalization Condition: Stable Pertinent studies: Exercise stress test, normal 2-D echo showed EF 50-55% Chest x-ray, no infiltrates Cervical spine CT/lumbar x-ray -no fracture, no spinal stenosis, mild d egenerative change, mild osteopenia and lumbar spondylosis present Hospital course: 67-year-old -[place] female with a history of hypertension, diabetes mellitus type 2, depression presented with left-sided chest pain with radiation to the neck on the left side. Patient also has left arm numbness which she attributes to the neck pain. She also complained of moderate to severe lumbar back pain. Patient was monitored with serial cardiac enzymes and EKG which she did not show any acute changes. Her exercise stress test was normal, 2-D echo showed preserved EF. CT of C-spine and lumbar x-ray did not show any acute pathology. Patient was placed on PPI and discharged home in stable condition with outpatient follow-up. Discharge diagnosis: (1) Acute chest pain, likely from GERD, ACS ruled out (2) HTN (hypertension), Continue antihypertensives (3) T2DM (type 2 diabetes mellitus), Continue glipizide (4) Depression: Continue Paxil 10 mg in the morning (5) Neck pain, acute -likely musculoskeletal CT of the C-spine showed mild degenerative changes, no spinal stenosis (6) Hyponatremia, Mild, Placed on IV fluids, (7) Lumber back pain lumber xry showed lumbar spondylolysis, patient will do outpatient follow-up (8) Morbid obesity, likely from excess calorie - Consult for dietary modification and outpatient follow-up with PCP Disposition: DC-01 TO HOME OR SELFCARE Time spent for discharge: 34 minutes Core Measure Documentation - Palliative Care Palliative Care/ Comfort Measures: Not Applicable - Core Measures Any of the following diagnoses?: none Exam - Constitutional Vitals: Temp Pulse Resp BP Pulse Ox 98.1 F 79 18 108/74 99 07/04/18 12:52 07/04/18 12:52 07/04/18 12:52 07/04/18 12:52 07/04/18 12:52 General appearance: Present: no acute distress, obese - EENT Eyes: Present: PERRL ENT: hearing intact, clear oral mucosa - Neck Neck: Present: supple, normal ROM - Respiratory Respiratory effort: normal Respiratory: bilateral: CTA - Cardiovascular Heart Sounds: Present: S1 & S2. Absent: rub, click - Extremities Extremities: pulses symmetrical, No edema Peripheral Pulses: within normal limits - Abdominal General gastrointestinal: Present: soft, non-tender, non-distended, normal bowel sounds - Integumentary Integumentary: Present: clear, warm, dry - Musculoskeletal Musculoskeletal: gait normal, strength equal bilaterally - Psychiatric Psychiatric: appropriate mood/affect, intact judgment & insight - Neurologic Neurologic: CNII-XII intact, moves all extremities Plan Activity: advance as tolerated Weight Bearing Status: Weight Bear as Tolerated Diet: low fat, low salt Special Instructions: record daily BP diary, record blood sugar diary Follow up with: ALVARO JAIN MD [Primary Care Provider] - 3-5 Days Prescriptions: Pantoprazole [Protonix] 40 mg PO QDAY #30 tablet
--- NOTE | 2018-07-05 02:47 | Treadmill Report ---
INDICATION: Chest pain. ORDERING PHYSICIAN: Nomi Patel MD FINDINGS: There is no scintigraphic evidence of myocardial ischemia. The left ventricle is normal in size. The left ventricular ejection fraction is measured at 79%. Normal wall motion and wall thickening is noted on gated imaging. CONCLUSION: Normal perfusion scan. JOB# [id number] AKD/NTS
== END 2018-07-04 17:21 | disposition home or self-care (01) ==
LOC: ED 12:02 → 4A 15:22
PROVIDERS: ADMIT Internal Medicine; ATTEND Internal Medicine
DX: R07.89 Other chest pain (principal); E11.9 Type 2 diabetes mellitus without complications; F32.9 Major depressive disorder, single episode, unspecified; E78.00 Pure hypercholesterolemia, unspecified; I11.0 Hypertensive heart disease with heart failure; I50.9 Heart failure, unspecified; R42 Dizziness and giddiness; M54.2 Cervicalgia; E87.1 Hypo-osmolality and hyponatremia; M54.5 Low back pain; Z98.890 Other specified postprocedural states
CPT/HCPCS: 36415; 71046; 72100; 72125; 78452; 80048; 82962; 83036; 84484; 85027; 85379; 85610; 85730; 93005; 93010; 93017; 93306; 96360; 96361; 96372; 99284; A9502; G0378; J1650; J2785; J7030

== ENCOUNTER 2018-07-22 03:12 | Emergency (ER) | payer MEDICARE ==
[2018-07-22 03:51] LABS: Basophils % (Auto) 0.8 % (0.0-1.8); Eosinophils # (Auto) 0.2 K/mm3 (0.0-0.4); Eosinophils % (Auto) 2.9 % (0.0-4.3); Hematocrit 36.5 % (30.3-42.9); Hemoglobin 13.1 gm/dl (10.1-14.3); Lymphocytes # (Auto) 1.9 K/mm3 (1.2-5.4); Lymphocytes % (Auto) 34.4 % (13.4-35.0); Mean Corpuscular HGB Conc 36 % (30-34); Mean Corpuscular Volume 90 fl (79-97); Monocytes # (Auto) 0.6 K/mm3 (0.0-0.8); Monocytes % (Auto) 10.6 % (0.0-7.3); Platelet Count 236 K/mm3 (140-440); Red Blood Count 4.07 M/mm3 (3.65-5.03); Red Cell Distribution Width 13.8 % (13.2-15.2)
[2018-07-22 04:14] LABS: Alanine Aminotransferase 15 units/L (7-56); Albumin 4.1 g/dL (3.9-5); BUN/Creatinine Ratio 16; Blood Urea Nitrogen 14 mg/dL (7-17); Calcium 9.6 mg/dL (8.4-10.2); Hemolysis Index 6
[2018-07-22 05:20] LABS: Bilirubin,Urine NEG (Negative); Blood,Urine NEG (Negative); Color,Urine Straw (Yellow); Protein,Urine <15 mg/dL mg/dL (Negative); RBC,Urine < 1.0 /HPF (0.0-6.0); Urobilinogen,Urine < 2.0 mg/dL (<2.0); WBC,Urine < 1.0 /HPF (0.0-6.0)
--- NOTE | 2018-07-22 06:13 | Emergency Department Report ---
ED General Adult HPI - General Chief complaint: Abdominal Pain Stated complaint: ABD PAIN DIFFICULTY SWALLOWING Time Seen by Provider: 07/22/18 06:11 Source: patient Mode of arrival: Ambulatory Limitations: No Limitations - History of Present Illness Initial comments: 62-year-old female who states "I've been having panic attacks ". Patient had some rapid breathing. She felt like she has some difficulty swallowing. The symptoms have since resolved. She previously had endoscopy upper and lower. She does not remember what it showed. She is a type II diabetic with a history of hypertension. She is on 2 diuretics. She was previously on potassium but not currently. At the time of my encounter she is asymptomatic. This episode only lasted a few minutes. He is not short of breath. She has been coughing. She does not complain of chest or abdominal pain although she states she has chronic problems with her ventral hernia. -: Gradual, minutes(s) Consistency: now resolved Improves with: none Worsens with: none Associated Symptoms: denies other symptoms - Related Data Home Medications Medication Instructions Recorded Confirmed Last Taken Aspirin EC 81 mg PO QDAY 07/06/16 07/03/18 07/06/16 09:00 Losartan [Cozaar] 100 mg PO QDAY 07/06/16 07/03/18 07/06/16 Metoprolol [Lopressor TAB] 25 mg PO QDAY 07/06/16 07/03/18 07/06/16 Triamterene/Hydrochlorothiazid 1 tab PO QDAY 07/06/16 07/03/18 07/06/16 [Triamterene-Hctz 50-25 mg Cap] amLODIPine [Norvasc] 10 mg PO QDAY 07/06/16 07/03/18 07/06/16 glipiZIDE [glipiZIDE ER] 5 mg PO QDAY 07/06/16 07/03/18 07/06/16 Metoclopramide 10 mg PO QDAY 07/03/18 07/03/18 Unknown Simvastatin 20 mg PO QDAY 07/03/18 07/03/18 Unknown Previous Rx's Medication Instructions Recorded Last Taken Type Pantoprazole [Protonix] 40 mg PO QDAY #30 tablet 07/04/18 Unknown Rx Potassium Chloride [Klor-Con 8] 8 meq PO QDAY #30 tablet 07/22/18 Unknown Rx Allergies Allergy/AdvReac Type Severity Reaction Status Date / Time lisinopril AdvReac Shortness Verified 07/03/18 12:45 of Breath ED Review of Systems ROS: Stated complaint: ABD PAIN DIFFICULTY SWALLOWING Other details as noted in HPI Constitutional: denies: chills, fever Eyes: denies: eye pain, eye discharge, vision change ENT: denies: ear pain, throat pain Respiratory: see HPI. denies: cough, shortness of breath, wheezing Cardiovascular: denies: chest pain, palpitations Endocrine: no symptoms reported Gastrointestinal: as per HPI. denies: abdominal pain, nausea, diarrhea Genitourinary: denies: urgency, dysuria, discharge Musculoskeletal: denies: back pain, joint swelling, arthralgia Skin: denies: rash, lesions Neurological: denies: headache, weakness, paresthesias Psychiatric: as per HPI, anxiety. denies: depression Hematological/Lymphatic: denies: easy bleeding, easy bruising ED Past Medical Hx - Past Medical History Previous Medical History?: Yes Hx Hypertension: Yes Hx Heart Attack/AMI: Yes Hx Congestive Heart Failure: Yes Hx Diabetes: Yes Additional medical history: high cholest. hernia - Surgical History Past Surgical History?: Yes Hx Appendectomy: No Additional Surgical History: - Social History Smoking Status: Never Smoker Substance Use Type: None - Medications Home Medications: Home Medications Medication Instructions Recorded Confirmed Last Taken Type Aspirin EC 81 mg PO QDAY 07/06/16 07/03/18 07/06/16 09:00 History Losartan [Cozaar] 100 mg PO QDAY 07/06/16 07/03/18 07/06/16 History Metoprolol [Lopressor TAB] 25 mg PO QDAY 07/06/16 07/03/18 07/06/16 History Triamterene/Hydrochlorothiazid 1 tab PO QDAY 07/06/16 07/03/18 07/06/16 History [Triamterene-Hctz 50-25 mg Cap] amLODIPine [Norvasc] 10 mg PO QDAY 07/06/16 07/03/18 07/06/16 History glipiZIDE [glipiZIDE ER] 5 mg PO QDAY 07/06/16 07/03/18 07/06/16 History Metoclopramide 10 mg PO QDAY 07/03/18 07/03/18 Unknown History Simvastatin 20 mg PO QDAY 07/03/18 07/03/18 Unknown History Pantoprazole [Protonix] 40 mg PO QDAY #30 tablet 07/04/18 Unknown Rx Potassium Chloride [Klor-Con 8] 8 meq PO QDAY #30 tablet 07/22/18 Unknown Rx ED Physical Exam - General Limitations: No Limitations General appearance: alert, in no apparent distress - Head Head exam: Present: atraumatic, normocephalic - Eye Eye exam: Present: normal appearance. Absent: scleral icterus - ENT ENT exam: Present: mucous membranes moist - Neck Neck exam: Present: normal inspection - Respiratory Respiratory exam: Present: normal lung sounds bilaterally. Absent: respiratory distress - Cardiovascular Cardiovascular Exam: Present: regular rate, normal rhythm. Absent: systolic murmur, diastolic murmur, rubs, gallop - GI/Abdominal GI/Abdominal exam: Present: soft, normal bowel sounds, hernia (ventral hernia reducible). Absent: distended, tenderness, guarding, rebound, rigid - Extremities Exam Extremities exam: Present: normal inspection, normal capillary refill. Absent: pedal edema, joint swelling, calf tenderness - Back Exam Back exam: Present: normal inspection - Neurological Exam Neurological exam: Present: alert, oriented X3, CN II-XII intact. Absent: motor sensory deficit - Psychiatric Psychiatric exam: Present: normal affect, normal mood - Skin Skin exam: Present: warm, dry, intact, normal color. Absent: rash ED Course Vital Signs 07/22/18 07/22/18 03:20 06:15 Temperature 97.9 F Pulse Rate 77 Respiratory 18 16 Rate Blood Pressure 134/84 O2 Sat by Pulse 100 97 Oximetry - Reevaluation(s) Reevaluation #1: Patient swallowing fine now. This seemed like her episode was consistent with globus hystericus. We will replete her potassium and give her prescription. She has follow-up at [facility] which should be appropriate at this point. 07/22/18 06:50 ED Medical Decision Making - Lab Data Result diagrams: 07/22/18 03:35 07/22/18 03:37 Laboratory Results - last 24 hr 07/22/18 07/22/18 07/22/18 03:35 03:37 04:45 WBC 5.5 RBC 4.07 Hgb 13.1 Hct 36.5 MCV 90 MCH 32 MCHC 36 H RDW 13.8 Plt Count 236 Lymph % (Auto) 34.4 [place] % (Auto) 10.6 H Eos % (Auto) 2.9 Baso % (Auto) 0.8 Lymph # 1.9 [place] # 0.6 Eos # 0.2 Baso # 0.0 Seg Neutrophils % 51.3 Seg Neutrophils # 2.8 Sodium 133 L Potassium 3.0 L Chloride 92.7 L Carbon Dioxide 27 Anion Gap 16 BUN 14 Creatinine 0.9 Estimated GFR > 60 BUN/Creatinine Ratio 16 Glucose 143 H Calcium 9.6 Total Bilirubin 0.30 AST 19 ALT 15 Alkaline Phosphatase 48 Total Protein 7.4 Albumin 4.1 Albumin/Globulin Ratio 1.2 Urine Color Straw Urine Turbidity Clear Urine pH 7.0 Ur Specific [place] 1.006 Urine Protein <15 mg/dl Urine Glucose (UA) Neg Urine Ketones Neg Urine Blood Neg Urine Nitrite Neg Urine Bilirubin Neg Urine Urobilinogen < 2.0 Ur Leukocyte Esterase Neg Urine WBC (Auto) < 1.0 Urine RBC (Auto) < 1.0 Critical care attestation.: If time is entered above; I have spent that time in minutes in the direct care of this critically ill patient, excluding procedure time. ED Disposition Clinical Impression: Hypokalemia, Acute anxiety Ventral hernia Qualifiers: Obstruction and gangrene presence: without obstruction or gangrene Qualified Code(s): K43.9 - Ventral hernia without obstruction or gangrene T2DM (type 2 diabetes mellitus) Qualifiers: Diabetes mellitus penitentiary insulin use: unspecified tack puller insulin use status Diabetes mellitus complication status: without complication Qualified Code(s): E11.9 - Type 2 diabetes mellitus without complications Disposition: DC- TO HOME OR SELFCARE Is pt being admited?: No Does the pt Need Aspirin: No Condition: Stable Instructions: Abdominal Pain (ED), Hypokalemia (ED), Diabetes Mellitus Type 2 in Adults (ED) Additional Instructions: Your potassium was a bit low. We are going to place U back on potassium. Follow-up with your doctors at [facility]. This will need a recheck blood test. Return to the emergency department any acute change or problem. See her GI doctors concerning follow-up. Prescriptions: Potassium Chloride [Klor-Con 8] 8 meq PO QDAY #30 tablet Referrals: ALVARO JAIN MD [Primary Care Provider] - 3-5 Days Time of Disposition: 06:52
[2018-07-22 06:51] VITALS: BP 118/74
[2018-07-22] MEDS ORDERED: K-DUR PO ONE (06:54)
== END 2018-07-22 07:30 | disposition home or self-care (01) ==
LOC: ED 03:12
DX: E87.6 Hypokalemia (principal); F41.9 Anxiety disorder, unspecified; K43.9 Ventral hernia without obstruction or gangrene; E11.9 Type 2 diabetes mellitus without complications; I11.0 Hypertensive heart disease with heart failure; I50.9 Heart failure, unspecified
CPT/HCPCS: 36415; 80053; 81001; 85025

== ENCOUNTER 2018-08-11 04:59 | Emergency (ER) | payer MEDICARE ==
[2018-08-11 05:42] LABS: Basophils % (Auto) 0.6 % (0.0-1.8); Eosinophils # (Auto) 0.1 K/mm3 (0.0-0.4); Eosinophils % (Auto) 2.3 % (0.0-4.3); Hematocrit 37.7 % (30.3-42.9); Hemoglobin 13.2 gm/dl (10.1-14.3); Lymphocytes # (Auto) 1.3 K/mm3 (1.2-5.4); Lymphocytes % (Auto) 24.4 % (13.4-35.0); Mean Corpuscular HGB Conc 35 % (30-34); Mean Corpuscular Volume 91 fl (79-97); Monocytes # (Auto) 0.6 K/mm3 (0.0-0.8); Monocytes % (Auto) 10.1 % (0.0-7.3); Platelet Count 207 K/mm3 (140-440); Red Blood Count 4.13 M/mm3 (3.65-5.03); Red Cell Distribution Width 13.8 % (13.2-15.2)
[2018-08-11 06:21] LABS: Alanine Aminotransferase 14 units/L (7-56); Albumin 4.1 g/dL (3.9-5); BUN/Creatinine Ratio 20; Blood Urea Nitrogen 14 mg/dL (7-17); Calcium 9.4 mg/dL (8.4-10.2); Hemolysis Index 48
[2018-08-11] MEDS ORDERED: BENTYL PO ONE (06:36)
[2018-08-11] MEDS ORDERED: CARAFATE PO ONE (06:36)
[2018-08-11] MEDS ORDERED: PEPCID PO ONE (06:36)
[2018-08-11] MEDS ORDERED: TYLENOL PO ONE (06:36)
--- NOTE | 2018-08-11 06:37 | Emergency Department Report ---
ED General Adult HPI - General Chief complaint: Dizziness Stated complaint: DIZZY Time Seen by Provider: 08/11/18 06:24 Source: patient, RN notes reviewed, old records reviewed Mode of arrival: Ambulatory Limitations: No Limitations - History of Present Illness Initial comments: Primary care Dr.: Dr. 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 This patient is not known to this provider previously. Patient presents to the emergency room with a complaint of acute on chronic nontraumatic paracervical and cervical neck discomfort, a sensation of generalized weakness, and dizziness, which is described as weakness, nontraumatic periumbilical cramping, nontraumatic bilateral bicipital cramping, and nontraumatic bilateral anterior tibial cramping. Symptoms started at 4:00 in the morning. She denies recent trauma and recent chiropractic manipulation. Her symptoms are aching, and throbbing, occasionally burning, intermittent, do not radiate anywhere, the neck discomforts does not move anywhere that she can recall, does not really have exacerbating or relieving factors. The patient denies extremity weakness, saddle anesthesia, bladder or bowel retention or incontinence. The patient denies chest pain and new or different shortness of breath. She is currently taking gabapentin for chronic neuropathic pain, and was recently started on an SSRI. -: Gradual Location: neck, left, right, upper extremity, lower extremity Radiation: non-radiation Quality: burning, aching Consistency: intermittent Improves with: other Worsens with: other - Related Data Home Medications Medication Instructions Recorded Confirmed Last Taken Aspirin EC 81 mg PO QDAY 07/06/16 07/03/18 07/06/16 09:00 Losartan [Cozaar] 100 mg PO QDAY 07/06/16 07/03/18 07/06/16 Metoprolol [Lopressor TAB] 25 mg PO QDAY 07/06/16 07/03/18 07/06/16 Triamterene/Hydrochlorothiazid 1 tab PO QDAY 07/06/16 07/03/18 07/06/16 [Triamterene-Hctz 50-25 mg Cap] amLODIPine [Norvasc] 10 mg PO QDAY 07/06/16 07/03/18 07/06/16 glipiZIDE [glipiZIDE ER] 5 mg PO QDAY 07/06/16 07/03/18 07/06/16 Metoclopramide 10 mg PO QDAY 07/03/18 07/03/18 Unknown Simvastatin 20 mg PO QDAY 07/03/18 07/03/18 Unknown Previous Rx's Medication Instructions Recorded Last Taken Type Pantoprazole [Protonix] 40 mg PO QDAY #30 tablet 07/04/18 Unknown Rx Potassium Chloride [Klor-Con 8] 8 meq PO QDAY #30 tablet 07/22/18 Unknown Rx Acetaminophen [Non-Aspirin Extra 500 mg PO Q6HR PRN #30 tablet 08/11/18 Unknown Rx Strength] Famotidine [Pepcid] 20 mg PO BID #30 tablet 08/11/18 Unknown Rx Allergies Allergy/AdvReac Type Severity Reaction Status Date / Time lisinopril AdvReac Shortness Verified 07/03/18 12:45 of Breath ED Review of Systems ROS: Stated complaint: DIZZY Other details as noted in HPI Constitutional: weakness. denies: fever, malaise Eyes: denies: eye discharge, vision change ENT: denies: epistaxis Respiratory: denies: cough Cardiovascular: denies: chest pain Gastrointestinal: abdominal pain Genitourinary: denies: dysuria Musculoskeletal: back pain, arthralgia, myalgia Skin: denies: lesions Neurological: headache (patient points to her neck when she describes her headache. ). denies: weakness Psychiatric: anxiety ED Past Medical Hx - Past Medical History Hx Hypertension: Yes Hx Heart Attack/AMI: Yes Hx Congestive Heart Failure: Yes Hx Diabetes: Yes Additional medical history: high cholest. hernia - Surgical History Past Surgical History?: Yes Hx Appendectomy: No Additional Surgical History: - Social History Smoking Status: Never Smoker Substance Use Type: None - Medications Home Medications: Home Medications Medication Instructions Recorded Confirmed Last Taken Type Aspirin EC 81 mg PO QDAY 07/06/16 07/03/18 07/06/16 09:00 History Losartan [Cozaar] 100 mg PO QDAY 07/06/16 07/03/18 07/06/16 History Metoprolol [Lopressor TAB] 25 mg PO QDAY 07/06/16 07/03/18 07/06/16 History Triamterene/Hydrochlorothiazid 1 tab PO QDAY 07/06/16 07/03/18 07/06/16 History [Triamterene-Hctz 50-25 mg Cap] amLODIPine [Norvasc] 10 mg PO QDAY 07/06/16 07/03/18 07/06/16 History glipiZIDE [glipiZIDE ER] 5 mg PO QDAY 07/06/16 07/03/18 07/06/16 History Metoclopramide 10 mg PO QDAY 07/03/18 07/03/18 Unknown History Simvastatin 20 mg PO QDAY 07/03/18 07/03/18 Unknown History Pantoprazole [Protonix] 40 mg PO QDAY #30 tablet 07/04/18 Unknown Rx Potassium Chloride [Klor-Con 8] 8 meq PO QDAY #30 tablet 07/22/18 Unknown Rx Acetaminophen [Non-Aspirin Extra 500 mg PO Q6HR PRN #30 tablet 08/11/18 Unknown Rx Strength] Famotidine [Pepcid] 20 mg PO BID #30 tablet 08/11/18 Unknown Rx ED Physical Exam - General Limitations: No Limitations General appearance: alert, in no apparent distress - Head Head exam: Present: atraumatic, normocephalic - Eye Eye exam: Present: normal appearance, PERRL, EOMI, other (visual acuity intact to finger counting, color perception, reading at a close distance). Absent: nystagmus - ENT ENT exam: Present: normal exam, normal orophraynx, mucous membranes moist, TM's normal bilaterally, normal external ear exam - Neck Neck exam: Present: normal inspection, full ROM. Absent: tenderness, meningismus - Respiratory Respiratory exam: Present: normal lung sounds bilaterally. Absent: respiratory distress - Cardiovascular Cardiovascular Exam: Present: regular rate, normal rhythm, normal heart sounds. Absent: bradycardia, tachycardia, irregular rhythm, systolic murmur, diastolic murmur, rubs, gallop - GI/Abdominal GI/Abdominal exam: Present: soft. Absent: distended, tenderness, guarding, rebound, rigid, pulsatile mass - Extremities Exam Extremities exam: Present: normal inspection, full ROM, other (2+ pulses noted in the bilateral upper, lower extremities. Compartments soft. No long bony tenderness. The pelvis is stable.). Absent: pedal edema, joint swelling, calf tenderness - Back Exam Back exam: Present: normal inspection, full ROM. Absent: tenderness, CVA tenderness (R), CVA tenderness (L), paraspinal tenderness, vertebral tenderness - Neurological Exam Neurological exam: Present: alert, oriented X3, normal gait (there is no past pointing. There is no pronator drift. There is normal [id number]. There is a normal gait), other (Extraocular movements intact. Tongue midline. No facial droop. Facial sensation intact to light touch in the V1, V2, V3 distribution bilaterally. 5 and 5 strength in 4 extremities.. Sensation is intact to light touch in 4 extremities.). Absent: motor sensory deficit - Psychiatric Psychiatric exam: Present: anxious - Skin Skin exam: Present: warm, dry, intact, normal color. Absent: rash ED Course Vital Signs 08/11/18 08/11/18 08/11/18 05:02 05:36 09:35 Temperature 98 F 98.2 F Pulse Rate 77 65 59 L Respiratory 14 19 16 Rate Blood Pressure 135/82 Blood Pressure 124/78 116/75 [Left] O2 Sat by Pulse 97 97 98 Oximetry - Reevaluation(s) Reevaluation #1: 08/11/18 08:46 Differential diagnosis, including not limited to: Arthritis, cervical radiculopathy, GERD, gastritis, hiatal hernia, ventral wall hernia, anxiety, orthostasis, urinary tract infection, constipation, Gen. medical exam Assessment and plan: 67-year-old female with numerous complaints, including chronic neck pain, nontraumatic bilateral biceps cramping, anterior tibial cramping, abdominal pain, and a complaint of generalized weakness. Objectively speaking, the patient is afebrile, with reassuring vital signs. She is not tachycardic or hypoxic, there is no posterior leg pain or swelling, and I do not suspect a pulmonary embolism or DVT based off of the history and physical, I find the patient to be low risk by well's criteria. Neurologically, she walks with a steady gait, has no posterior circulation signs, has an NIH score of 0, and a GCS of 15. EKG unchanged from prior, screening laboratory studies unremar kable, not suggestive of emergent process, CT scan of the brain negative for acute disease, imaging studies from June 2018 reviewed and appreciated, patient's pain is treated, and a CT scan of abdomen and pelvis is pending. Do not anticipate any emergent pathology at this time. Reevaluation #2: 08/11/18 10:49 Patient reassessed multiple times. Sleeping comfortably, and stretcher, police clerk repeat exam, and she indicates that she feels improved. Her objective testing has not demonstrated any emergent condition. Her physical examination appears to be unremarkable. Patient does not appear to have an emergent medical condition at this time. Patient medically suitable for discharge at this point in time. ED Medical Decision Making - Lab Data Result diagrams: 08/11/18 05:25 08/11/18 05:27 Vital Signs 08/11/18 08/11/18 05:02 05:36 Temperature 98 F 98.2 F Pulse Rate 77 65 Respiratory 14 19 Rate Blood Pressure 135/82 Blood Pressure 124/78 [Left] O2 Sat by Pulse 97 97 Oximetry Lab Results 08/11/18 08/11/18 08/11/18 Range/Units 05:25 05:27 05:53 WBC 5.5 (4.5-11.0) K/mm3 RBC 4.13 (3.65-5.03) M/mm3 Hgb 13.2 (10.1-14.3) gm/dl Hct 37.7 (30.3-42.9) % MCV 91 (79-97) fl MCH 32 (28-32) pg MCHC 35 H (30-34) % RDW 13.8 (13.2-15.2) % Plt Count 207 (140-440) K/mm3 Lymph % (Auto) 24.4 (13.4-35.0) % [place] % (Auto) 10.1 H (0.0-7.3) % Eos % (Auto) 2.3 (0.0-4.3) % Baso % (Auto) 0.6 (0.0-1.8) % Lymph # 1.3 (1.2-5.4) K/mm3 [place] # 0.6 (0.0-0.8) K/mm3 Eos # 0.1 (0.0-0.4) K/mm3 Baso # 0.0 (0.0-0.1) K/mm3 Seg Neutrophils % 62.6 (40.0-70.0) % Seg Neutrophils # 3.4 (1.8-7.7) K/mm3 Sodium 134 L (137-145) mmol/L Potassium 3.5 L (3.6-5.0) mmol/L Chloride 97.1 L (98-107) mmol/L Carbon Dioxide 26 (22-30) mmol/L Anion Gap 14 mmol/L BUN 14 (7-17) mg/dL Creatinine 0.7 (0.7-1.2) mg/dL Estimated GFR > 60 ml/min BUN/Creatinine Ratio 20 % Glucose 104 H (65-100) mg/dL Calcium 9.4 (8.4-10.2) mg/dL Total Bilirubin 0.40 (0.1-1.2) mg/dL AST 20 (5-40) units/L ALT 14 (7-56) units/L Alkaline Phosphatase 50 (35-129) units/L Total Protein 7.8 (6.3-8.2) g/dL Albumin 4.1 (3.9-5) g/dL Albumin/Globulin Ratio 1.1 % Urine Color Yellow (Yellow) Urine Turbidity Clear (Clear) Urine pH 6.0 (5.0-7.0) Ur Specific [place] 1.016 (1.003-1.030) Urine Protein 30 mg/dl (Negative) mg/dL Urine Glucose (UA) Neg (Negative) mg/dL Urine Ketones Neg (Negative) mg/dL Urine Blood Neg (Negative) Urine Nitrite Neg (Negative) Urine Bilirubin Neg (Negative) Urine Urobilinogen < 2.0 (<2.0) mg/dL Ur Leukocyte Esterase Tr (Negative) Urine WBC (Auto) 2.0 (0.0-6.0) /HPF Urine RBC (Auto) 4.0 (0.0-6.0) /HPF U Epithel Cells (Auto) 1.0 (0-13.0) /HPF Urine Mucus Few /HPF - EKG Data -: EKG Interpreted by Me EKG shows normal: sinus rhythm Rate: normal - EKG Data 08/11/18 08:45 EKG shows a normal sinus rhythm, 69 bpm, borderline left axis deviation, left anterior fascicular block, QTC within normal limits, no endorsement of chest pain, this EKG is abnormal, this EKG is unchanged from prior from June 2018, this EKG is not consistent with ST elevation myocardial infarction. - Radiology Data Radiology results: pending, report reviewed, image reviewed CT cervical spine from June 2018 shows o osteoarthritic changes. Lumbar spine x- ray from June [address] scan of the brain today negative for acute disease. CT scan of abdomen and pelvis today: Critical care attestation.: If time is entered above; I have spent that time in minutes in the direct care of this critically ill patient, excluding procedure time. ED Disposition Clinical Impression: Chronic neck pain, Myalgia, Chronic abdominal pain Abdominal pain Qualifiers: Abdominal location: unspecified location Qualified Code(s): R10.9 - Unspecified abdominal pain Disposition: - TO HOME OR SELFCARE Is pt being admited?: No Does the pt Need Aspirin: No Condition: Stable Additional Instructions: Continue current outpatient medications. Follow up with her primary care doctor within the next 7-10 days. Take pain medications as needed/directed. Return to the emergency room right away with new, worsening or different symptoms not present on the initial emergency room evaluation. Referrals: ALVARO JAIN MD [Staff Physician] - 3-5 Days
[2018-08-11 07:21] LABS: Bilirubin,Urine NEG (Negative); Blood,Urine NEG (Negative); Color,Urine Yellow (Yellow); Mucus,Urine FEW /HPF; Urobilinogen,Urine < 2.0 mg/dL (<2.0)
--- NOTE | 2018-08-11 08:22 | Cat Scan Report ---
CT head without contrast INDICATION : Headache, patient complains of dizziness since waking up this morning. TECHNIQUE: Axial imaging performed from the skull apex through the skull base without the use of con trast. All CT scans at this location are performed using CT dose reduction for ALARA by means of aut omated exposure control. COMPARISON: None FINDINGS: Parenchyma: No acute intracranial hemorrhage or parenchymal abnormality. Ventricles: Ventricles are normal in size and appear symmetric. Soft tissues: Soft tissues including the orbits appear normal. Bones: No acute osseous abnormality. Sinuses: Sinuses and mastoid air cells are clear. IMPRESSION: No acute abnormality. Signer Name: Fahad Gardner Jr, MD Signed: 08/11/2018 8:18 AM Workstation Name: [id number]
--- NOTE | 2018-08-11 09:24 | Cat Scan Report ---
CT scan of the abdomen and pelvis without contrast INDICATION: abd pain. Upper leg pain TECHNIQUE: All CT scans at this location are performed using the following dose modulation technique: Automated exposure control. Helical slices were obtained through the abdomen and pelvis. No contrast is adminis tered. COMPARISON: None available. FINDINGS: Abdomen: The lung bases are clear. The liver, spleen, pancreas, adrenal glands, and kidneys are unrem arkable. The aorta is normal in diameter. There is a fat-containing ventral hernia above the level of the umbilicus. There is cholelithiasis. The appendix is normal in appearance. There is no obstruction, inflammation, or free air. There are scattered diverticula in the colon. Pelvis: There is sigmoid diverticulosis. There is no inflammatory change. Phleboliths are noted in th e pelvis. On review of bone windows, no acute osseous abnormalities are seen. IMPRESSION: 1. There is no obstruction, inflammation, or free air. There are no abnormal fluid collections. There is cholelithiasis. There is a fat-containing ventral hernia. Signer Name: Alfred Huerta MD Signed: 08/11/2018 9:20 AM Workstation Name: [id number]
[2018-08-11 09:36] VITALS: BP 116/75
== END 2018-08-11 11:20 | disposition home or self-care (01) ==
LOC: ED 04:59
DX: M54.2 Cervicalgia (principal); R10.33 Periumbilical pain; M79.10 Myalgia, unspecified site; I11.0 Hypertensive heart disease with heart failure; I50.9 Heart failure, unspecified; E11.9 Type 2 diabetes mellitus without complications; E78.00 Pure hypercholesterolemia, unspecified; Z79.899 Other long term (current) drug therapy; Z88.6 Allergy status to analgesic agent
CPT/HCPCS: 36415; 70450; 74176; 80053; 81001; 82550; 83735; 85025; 93005; 93010